=== PATIENT | female | born 1990 | race Two or more races ===

== ENCOUNTER 2018-04-16 04:40 | Emergency (ER) | payer OTHER ==
[~2018-04-16] VITALS: Ht 170.2 cm; Wt 74.4 kg
[~2018-04-16 04:40] MED LIST: DOXYCYCLINE HY100 M3 PO; IBUPROFEN200 MG PO; METRONIDAZOLE500 MG PO; TYLENOL EXTRA500 MG PO; ULTRAM50 MG PO; ZOFRAN PO
--- OUTSIDE RECORDS SUMMARY | 2018-04-16 04:45 | XMS REPORT | Clinical Summary ---
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
--- OUTSIDE RECORDS SUMMARY | 2018-04-16 04:45 | XMS REPORT ---
[facility] Organization [facility] Address Unknown Phone Unavailable Care Team Providers Care Inventory Administrator Name Role Phone HECTOR GIL Unavailable Unavailable Problems This patient has no known problems. Allergies, Adverse Reactions, Alerts This patient has no known allergies or adverse reactions. Medications This patient has no known medications. Results Test Description Test Time Test Comments Text Results Atomic Results Result Comments CHEST 2 VIEWS [facility] [address] [place], [place] [address] Patient Name: DESTINY YORK MR #: [id number] : 1990 Age/Sex: 27/F Req #: [id number] Adm Physician: Ordered by: HECTOR GIL MD Report #: [id number] Location: OR Room/Bed: Procedure: [id number] DX/CHEST 2 VIEWS Exam Date: 10/17/17 Exam Time : 0900 REPORT STATUS: Signed PROCEDURE: X-RAY CHEST, TWO VIEWS COMPARISON: None. INDICATIONS: PRE OPERATIVE CHEST X-RAY FOR BLADDER SURGERY FINDINGS: LUNGS: No consolidations or edema. PLEURA: No effusions or pneumothorax. HEART T MEDIASTINUM: The heart is within normal size-limits. BONES T SOFT TISSUES: No acute findings. CONCLUSION: No acute thoracic abnormality. Chase Ng D.O. Dictated by: Chase Ng D.O. on 10/17/2017 at 10:55 Electronically approved by: Chase Ng D.O. on 10/17/2017 at 10:55 Dictated By: CHASE NG DO 1055 Transcribed By: SUMAYA on 10/17/17 1055 COPY TO: HECTOR GIL MD
[2018-04-16] MEDS ORDERED: IOPAMIDOL 300MG/ML 100 ML INFUS..BTL IV ONE (06:00)
[2018-04-16] MEDS ORDERED: LORAZEPAM 1 MG TAB PO PRN (07:30)
[2018-04-16] MEDS ORDERED: HYDROCODONE/APAP 5MG-325MG TAB PO ONE (07:30)
[2018-04-16 07:40] VITALS: BP 122/60
== END 2018-04-16 08:06 | disposition home or self-care (01) ==
LOC: FSED 04:40
DX: R10.9 Unspecified abdominal pain (principal); R11.0 Nausea
CPT/HCPCS: 74177; 80053; 81003; 81025; 85025; 99284; Q9967

== ENCOUNTER 2022-08-24 20:01 | Emergency (ER) | payer BC, OTHER ==
[~2022-08-24] VITALS: Ht 170.2 cm; Wt 71.7 kg
[2022-08-24] MEDS ORDERED: MECLIZINE HCL25 MG PO (21:44)
[2022-08-24] MEDS ORDERED: MECLIZINE HCL 12.5 MG TAB PO ONE (21:45)
[2022-08-24] MEDS ORDERED: MECLIZINE HCL 12.5 MG TAB ONE (21:50)
[2022-08-24 21:56] VITALS: BP 94/55
== END 2022-08-24 21:56 | disposition home or self-care (01) ==
LOC: FSED 20:06
DX: S06.0X0A Concussion without loss of consciousness, initial encounter (principal); M54.2 Cervicalgia; W01.0XXA Fall on same level from slipping, tripping and stumbling without subsequent striking against object, initial encounter; Y93.01 Activity, walking, marching and hiking; Y99.0 Civilian activity done for income or pay; F41.9 Anxiety disorder, unspecified; Z87.442 Personal history of urinary calculi
CPT/HCPCS: 70450; 81003; 99283; J8597

== ENCOUNTER 2022-12-18 10:58 | Emergency (ER) | payer BC ==
[~2022-12-18] VITALS: Ht 170.2 cm; Wt 71.7 kg
[~2022-12-18 10:58] MED LIST changes: +MECLIZINE HCL25 MG PO
[2022-12-18] MEDS ORDERED: ONDANSETRON HCL INJ 2MG/ML 2ML 2 MG/ML VIAL IV STA (11:29)
[2022-12-18] MEDS ORDERED: KETOROLAC TROMETHAMINE 30 MG/ML VIAL IV STA (11:29)
[2022-12-18] MEDS ORDERED: SODIUM CHLORIDE 0.9% 1000ML 1,000 ML IV ONE (11:30)
[2022-12-18] MEDS ORDERED: DEXAMETHASONE SOD PHOS 10 MG/1 ML VIAL IV ONE (12:00)
[2022-12-18] MEDS ORDERED: DIPHENHYDRAMINE HCL 25 MG CAP PO ONE (12:00)
[2022-12-18] MEDS ORDERED: FIORICET 50-301 EACH PO (13:10)
[2022-12-18] MEDS ORDERED: ONDANSETRON ODT4 MG PO (13:10)
== END 2022-12-18 13:20 | disposition home or self-care (01) ==
LOC: ER 11:35
DX: G44.309 Post-traumatic headache, unspecified, not intractable (principal); R55 Syncope and collapse; R42 Dizziness and giddiness; R53.1 Weakness; F41.9 Anxiety disorder, unspecified; N80.9 Endometriosis, unspecified
CPT/HCPCS: 99282; J1100; J1885; J2405; J7030